=== PATIENT | male | born 1965 | race Two or more races ===

== ENCOUNTER → 2020-09-19 | Outpatient (CLI) | payer OTHER ==
--- NOTE | 2020-09-19 16:12 | KCIC ---
Coronary artery calcium score dated September 19, 2020. No comparison available. Clinical Indication: Calcium screening. History of hypertension and hyperlipidemia. Technical factors: High resolution, computed tomography of the heart was performed with ECG gating and suspended respira tion. No contrast material was administered. Post processing [facility] phase images to measure the amount of coronary vascular calcium. Scoring was pe rformed utilizing the Agatston Method. PQRS compliance Statement One or more of the following individualized dose reduction techniques were utilized for this study: 1. Automated exposure control 2. Adjustment of the mA and/or kV according to patient size 3. Use of iterative reconstruction technique Results: Thorax: Calcified lymph node is seen within the subcarinal region due to old granulomatous disease. N onenlarged right paratracheal lymph node is seen measuring under 1 cm. These are benign findings. No other significant abnormality is identified in the lungs or mediastinum. Note that this CT exam is li mited to the heart and adjacent structures. Coronary arteries: Left main coronary artery: 0 Left anterior descending coronary artery: 35.2 Left circumflex coronary artery: 0 Right coronary artery: 22.8 Total coronary artery calcium score: 58.0 Information is based on an analysis of the coronary arteries only. Calcium deposits do not correspond directly to the percentage of narrowing of the arteries. They do correlate directly to the amount of coronary artery plaque and to the risk of future coronary artery disease. These calcium deposits usu ally begin to form years before any symptoms develop. Early detection and modification of risk factor s, such as smoking and cholesterol intake, can slow the progress of coronary artery disease. A low score suggests a low likelihood of coronary artery disease, but does not exclude the possibilit y of significant coronary artery narrowing. The results should be discussed with your physician olive villaseñor into account other risk factors such as age, gender, family history, diabetes, smoking or high chol esterol levels. Should you ever experience chest pain, difficulty breathing, discomfort radiating into your neck or a rm, or discomfort combined with lightheadedness, sweating, fainting or nausea, you should seek prompt medical attention. Conclusions: 1. Coronary atherosclerosis is present, limited amount. 2. Intermediate risk of cardiovascular event. Recommendations: 1. Further evaluation and prevention strategies should be based on global assessment of cardiovascula r risk factors in addition to the results of this test. 2. Aggressive reduction of modifiable cardiovascular risk factors should be considered. Additional supporting information concerning the findings and recommendation contained within this report can be found in the consensus statements on coronary vascular calcium published by the [place] [employer] and [place] [employer] 5 Conference (Circulation 1996 ; 94: 2409-9941; J Am Princess Cardiol 2000; 36: 326-340 and Circulation 2000; 101: 111-116). Electronically signed by: Jonathan Armstrong MD (09/19/2020 4:09 PM) [id number]
== END ==
LOC: KCIC CT 14:40
PROVIDERS: ATTEND Internal Medicine Cardiovascular Disease
DX: I10 Essential (primary) hypertension (principal); E78.5 Hyperlipidemia, unspecified
CPT/HCPCS: 75571